=== PATIENT | male | born 1985 | race Two or more races ===

== ENCOUNTER 2019-07-24 06:42 | Emergency (ER) | payer MEDICAID ==
[~2019-07-24] VITALS: Ht 185.4 cm; Wt 98.0 kg
[2019-07-24 06:50] VITALS: Ht 185.4 cm; Wt 98.0 kg
[2019-07-24 07:34] LABS: CALCIUM 8.1 mg/dL (8.5-10.1); CARBON DIOXIDE 29.1 mmol/L (21-32); CHLORIDE SERUM 99 mmol/L (98-107); CREATININE SERUM 0.8 mg/dL (0.7-1.3); GFR1 > 60 mL/min; GLUCOSE SERUM 255 mg/dL (74-106); POTASSIUM SERUM 3.9 mmol/L (3.5-5.1); SODIUM SERUM 134 mmol/L (136-145)
[2019-07-24 08:40] VITALS: BP 134/86
== END 2019-07-24 08:40 | disposition home or self-care (01) ==
LOC: ED 06:42
PROVIDERS: Emergency Medicine
DX: G44.209 Tension-type headache, unspecified, not intractable (principal); E11.9 Type 2 diabetes mellitus without complications
CPT/HCPCS: 82962; J1885